=== PATIENT | female | born 1955 | race Caucasian/White ===

== ENCOUNTER 2018-08-05 09:39 | Inpatient (IN) ==
[2018-08-05] MEDS ORDERED: ZOFRAN IV PRN (15:26)
[2018-08-05] MEDS ORDERED: NS 1,000 ML IV SCH (15:30)
[2018-08-05] MEDS: FLAGYL 500 MG/NS 500 MG/100 ML IVPB IV SCH ×2 (16:16→23:39)
[2018-08-05] MEDS ORDERED: CIPRO 400 MG/D5W 400 MG/200 ML IVPB IV SCH (17:00)
[2018-08-05 18:05] LABS: URINE SOURCE CLEAN CATCH
[2018-08-05 18:17] LABS: BILIRUBIN URINE NEGATIVE (NEGATIVE); BLOOD URINE NEGATIVE (NEGATIVE); COLOR YELLOW; GLUCOSE URINE 100 mg/dL (NEGATIVE); KETONE URINE NEGATIVE (NEGATIVE); LEUKOCYTES URINE NEGATIVE (NEGATIVE); NITRITE URINE NEGATIVE (NEGATIVE); PROTEIN URINE TRACE mg/dL (NEGATIVE); SP GRAVITY URINE 1.024; TURBIDITY URINE CLEAR (CLEAR); UROBILINOGEN URINE NORMAL (NORMAL)
[2018-08-05 18:18] LABS: UR EPITHELIAL CELLS <10 /HPF (<10); URINE BACTERIA NEGATIVE /HPF; URINE RBC <10 /HPF (<10); URINE WBC <10 /HPF (<10)
[2018-08-05] MEDS: LASIX PO SCH (18:32)
[2018-08-05] MEDS: ALDACTONE PO SCH (18:32)
[2018-08-05] MEDS ORDERED: BENADRYL PO PRN (18:36)
[2018-08-05 19:20] LABS: BODY FLUID SOURCE PERITONEAL FLUID; WBC BF 433 /cumm
[2018-08-05 19:23] LABS: ALBUMIN BODY FLUID 0.3 g/dL
[2018-08-05 19:26] LABS: MONOS 84 %; POLYS 16 %
[2018-08-05] MEDS: TYLENOL PO PRN (23:39)
--- NOTE | 2018-08-05 23:43 | GENERAL SURGERY CONSULTATION ---
DATE: 08/05/2018 HISTORY OF PRESENT ILLNESS: This is a 63-year-old female who is a patient Dr. Washington. She underwent laparoscopic cholecystectomy with a wedge resection of liver, chronic cholecystitis, and for presumed cirrhosis on 07/26/2018. She had a drain that was left that drained serous ascites and was removed. She developed abdominal discomfort. Dr. Osborne got a CT scan that did not really show anything acute, and she went to [place], where another CT scan was obtained. There is some questionable history of pyelonephritis that was noted on her CT scan, and possible right-sided colitis. But, overall she has had normal bowel function, no fevers, and no jaundice. Pain is across her lower abdomen. She was also felt to be constipated at 1 point. She was transferred here for further management as there surgeons apparently refused to see her. She is recently postop. MEDICAL HISTORY: Nonalcoholic steatohepatitis with cirrhosis, hypertension, diabetes, hyperlipidemia, osteoarthritis, depression, anxiety. SURGICAL HISTORY: Cholecystectomy, liver biopsy, and a left oophorectomy. SOCIAL HISTORY: No alcohol. Smokes half pack a day. Lives with her family. REVIEW OF SYSTEMS: Ten point negative. FAMILY HISTORY: Arthritis, diabetes, hypertension, and CVA. OBJECTIVE: Vital signs: She is afebrile, 97.9, pulse 70, blood pressure 150/70, O2 saturation 100 percent. General: She is alert. HEENT: No scleral icterus. No cervical mass. Cardiovascular: Normal rate. Pulmonary: No increased work of breathing. Abdomen: Soft. There is serous drainage from the lateral port site. Integument: Warm, dry without jaundice. Psychiatric: Appropriate affect. Neurologic: No obvious tremulousness. No focal deficits. Some lower extremity edema noted on peripheral vascular exam. LABS: White count is pending. Urinalysis shows trace protein and glucose. ASSESSMENT AND PLAN: This 63-year-old female with apparent ascites leak, most likely from decompensated cirrhosis after cholecystectomy. I have talked to Dr. Perez as well as Dr. Harvey about this. We will continue medical optimization. Her ascites is drained and we may ultimately place a stitch here to decrease this but we will in the meantime, until her workup is completed, allow this to drain. It is clear, I do not see any purulence, and her exam is benign. There is really no tenderness on exam. We will follow along. cc: Kacey Little MD
[2018-08-06 06:10] LABS: BASO# 0.13 X1000 (0.0-0.2); BASO% 0.8 % (0.0-0.8); EOS# 0.68 X1000 (0.0-0.7); EOS% 4.4 % (0.0-10.0); HEMATOCRIT 41.5 % (37.0-47.0); HEMOGLOBIN 14.3 g/dL (12.0-16.0); IMM GRAN# 0.19 X1000 (0.0-0.04); IMM GRAN% 1.2 % (0.0-0.5); LYMPH# 2.44 X1000 (1.2-3.4); LYMPH% 15.9 % (20.5-51.1); MCH 32.3 PG (27-31); MCHC 34.5 g/dL (33-37); MCV 93.7 FL (81-99); MONO# 1.91 X1000 (0.11-0.59); MONO% 12.4 % (1.7-9.3); MPV 10.5 FL (7.4-10.4); NEUT% 65.3 % (42.2-75.2); PLT 204 X1000 (130-400); RBC 4.43 XMIL (4.2-5.4); RDW 14.4 % (11.5-14.5); WBC 15.35 X1000 (4.8-10.8)
[2018-08-06 06:30] LABS: AGAP 10; ALB/GLOB RATIO 0.7; ALBUMIN 2.6 g/dL (3.5-5.0); ALKALINE PHOSPHATASE 292 U/L (32-104); BUN 14 mg/dL (8-22); CALCIUM 8.3 mg/dL (8.8-10.2); CHLORIDE 101 mmol/L (98-107); COSMO 270; CREATININE 0.7 mg/dL (0.5-0.9); ESTIMATED GFR > 60; GLUCOSE 161 mg/dL (70-104); GOT 80 U/L (10-30); GPT 60 U/L (10-36); POTASSIUM 4.2 mmol/L (3.5-5.1); SODIUM 133 mmol/L (136-145); TCO2 22 mmol/L (25-35); TOTAL BILIRUBIN 0.87 mg/dL (0.20-1.00); TOTAL PROTEIN 6.3 g/dL (6.3-8.3)
[2018-08-06] MEDS: TYLENOL PO PRN ×2 (06:51→16:08)
--- NOTE | 2018-08-06 08:06 | GASTROENTEROLOGY CONSULTATION ---
DATE: 08/05/2018 REASON FOR CONSULTATION: Newly decompensated ALLRED cirrhosis with ascites. HISTORY OF PRESENT ILLNESS: Ms. Althea Chau is a 63-year-old woman with past medical history of hypertension, hyperlipidemia, GERD, insulin-dependent diabetes type 2, anxiety, and ALLRED cirrhosis, who underwent laparoscopic cholecystectomy by Dr. Osborne on 07/26, who presents with persistent drainage of clear yellow fluid from her MAGUE drain site since her operation. The patient reports having underwent cholecystectomy for chronic cholecystitis. Intraoperatively she was found to have a nodular-appearing liver, and underwent wide resection of segment 4 of the liver. A MAGUE drain was placed and the patient was discharged the same day. She was seen in the ER on 07/28 complaining of generalized abdominal pain, and was diagnosed with constipation. She underwent CT of the abdomen and pelvis with IV contrast that showed constipation, cirrhosis and patchy bibasilar atelectasis without significant evidence of ascites. She was noted to have drainage from her MAGUE drain at the time. Since then, she says that she has been emptying her MAGUE drain approximately every 30 minutes. She was seen by her PCP because of her symptoms, as well as right lower quadrant pain. This past Wednesday she was seen by her surgeon, who removed her MAGUE drain. Despite removal of the drain, she continued to have copious amounts of fluid that would drain spontaneously that was worse with standing. She complains of associated nausea, no vomiting, fevers, chills, sludge, bright red blood per rectum, melena. No NSAIDs or blood thinners. She denies having a history of ascites in the past or other complications of cirrhosis. REVIEW OF SYSTEMS: As per HPI, otherwise 12 point review of systems is negative. PAST MEDICAL HISTORY: As per HPI. Other notable history includes osteoarthritis, tobacco abuse. The patient reports having an EGD in 2018 that showed grade 1 varices that were nonbleeding. No history of banding. PAST SURGICAL HISTORY: Cholecystectomy on 07/26, hysterectomy, , carpal tunnel surgery. FAMILY HISTORY: Negative for liver disease. SOCIAL HISTORY: She smokes 1/4 pack of tobacco daily. No alcohol or drug use. HOME MEDICATIONS: Include lisinopril, hydrochlorothiazide combination medication, sertraline, Janumet, Novolin 70/30, clonidine. ALLERGIES: No known drug allergies. PHYSICAL EXAMINATION: Vital Signs: Temperature 97.9 degrees, heart rate 74, respiratory rate 18, blood pressure 134/45, O2 saturation 97% on room air. General: The patient is awake, alert, oriented, in no acute distress. HEENT: Sclerae anicteric. Moist mucous membranes. Extraocular motor intact. Neck: Supple. No JVD or lymphadenopathy. Cardiac: Regular rate and rhythm. No murmurs. Lungs: Clear to auscultation bilaterally. Abdomen: Obese, distended. Bowel sounds are present. Difficult to appreciate significant ascites. There is am ostomy bag overlying the MAGUE drain site at the right lower quadrant that is draining yellow clear fluid. The patient has some mild tenderness to palpation in the right lower quadrant. No rebound or guarding. Extremities: No clubbing, cyanosis, or edema. Neurologic: Cranial nerves II-XII grossly intact. No asterixis. Moving extremities symmetrically. LABS/X-RAYS: The patient was initially hospitalized at outpatient hospital since 08/02, and was treated for suspected pyelonephritis with antibiotics. CT of the abdomen and pelvis done there showed potential colitis in the ascending and sigmoid colon. No evidence of pyelonephritis. Urine culture that showed Klebsiella pneumoniae, UTI. Labs today showed a sodium of 132, potassium 4.2, chloride of 96, bicarbonate 23. BUN of 20, creatinine 0.6, glucose of 223. White count 17.5, hemoglobin of 13.9, platelets of 233,000. Albumin 3.1, total protein 7.5, total bilirubin of 1.0. ALT of 84, AST of 54, alkaline phosphatase of 313. There is no fluid analysis studies in the transfer paperwork. ASSESSMENT AND PLAN: 1. Ms. Althea Chau is a 63-year-old woman with hypertension, hyperlipidemia, insulin- dependent diabetes type 2, who underwent recent laparoscopic cholecystectomy and wedge liver biopsy, who presents with newly decompensated nonalcoholic steatohepatitis cirrhosis with ascites. Her labs from the outside hospital are notable for leukocytosis, urinary tract infection with Klebsiella pneumoniae, and computed tomography of the abdomen and pelvis concerning for possible colitis. She is currently on antibiotics with ceftriaxone and Flagyl. General Surgery was consulted and following; appreciate recommendations for her cirrhosis. She is followed by Dr. Glass from [place]. 2. For ascites, we will apply pressure dressing at the site of the Damon-Rogers drain after removing the colostomy bag and getting ascites fluid studies, including cultures, Clostridium difficile, Gram stain, bilirubin, albumin culture and cell count with this. We will also start her on a diabetic diet, spironolactone 100 mg, furosemide 40 mg. She may need intermittent paracentesis to help reduce ascites and drainage from her Damon-Rogers drain. I will discuss with Surgery for possible closure of her Damon-Rogers drain if necessary pending her clinical course. 3. Leukocytosis secondary to urinary tract infection. Cannot rule out peritonitis. We will follow up fluid analysis and culture. Continue antibiotics. 4. Computed tomography showing colitis. The patient denies any diarrhea. She has had a colonoscopy in the past with a history of colon polyps. She cannot recall when her last colonoscopy was done. There is no evidence of anemia on her labs. 5. Insulin-dependent diabetes. Recommend sliding scale insulin. 6. Hypertension. Holding blood pressure medications. She is currently normotensive at the moment. We will trend her liver function tests and INR daily, as well as her chemistries and complete blood count. Thank you for this consult. We will follow with you. Please call with any questions or concerns. [facility]ITAL[facility]
[2018-08-06] MEDS ORDERED: ROCEPHIN 1 GM in NS 50 ML IV SCH (09:00)
[2018-08-06] MEDS: ALDACTONE PO SCH (09:22)
[2018-08-06] MEDS: FLAGYL 500 MG/NS 500 MG/100 ML IVPB IV SCH ×2 (09:22→16:08)
[2018-08-06] MEDS: LASIX PO SCH (09:23)
--- NOTE | 2018-08-06 11:18 | PROGRESS NOTE ---
DATE: 08/06/2018 SUBJECTIVE: She is does state she feels better. The lower abdominal pain has diminished quite a bit. She remains afebrile. She is breathing comfortably, tolerating liquids. OBJECTIVE: Vital signs: Temperature 98.2 degrees, pulse 80, respirations 16, blood pressure 141/81. HEENT: Pupils are equal. Lungs: Clear anterolateral. Lymph nodes: No cervical or supraclavicular or femoral adenopathy. Abdomen: Lower abdomen is much less tender. Rest of the abdomen nondistended. Really diminished tenderness. ASSESSMENT AND PLAN: 1. Recently received laparoscopic cholecystectomy and had a wedge liver biopsy. She has newly decompensated nonalcoholic steatohepatitis cirrhosis with ascites. She has been treated for a urinary tract infection with Klebsiella pneumoniae. CT of the abdomen and pelvis, possible colitis, on antibiotics. We are using ceftriaxone and Flagyl. Note we tried some Cipro IV and she had developed a rash and itching. So, doing much better. She feels better. She is followed by Dr. Glass from [place] for her nonalcoholic liver disease. 2. Ascites. We are going to apply some pressure at the site of the Damon-Rogers drain and we will get cultures from the ascitic fluid. Clinically, she is much better. She may need intermittent paracentesis to help ascites and drainage from her Damon-Rogers drain. 3. Leukocytosis which is presumably is secondary from urinary tract infection. Cannot rule out peritonitis at this time. 4. CT shows colitis. Had a colonoscopy in the past with history of colon polyps. Does not recall when her last colonoscopy was done. 5. Insulin-dependent diabetes. 6. Hypertension. REVIEW OF CURRENT ORDERS: I do not see any change at this time. She does feel better. She is on a diabetic diet. cc: Jeremy Horn MD
--- NOTE | 2018-08-06 17:58 | Diag Imaging Result Doc PS360 ---
EXAM: US ABDOMEN-COMPLETE HISTORY: evaluate ascites TECHNIQUE: Abdominal ultrasound COMPARISON: CT from 07/28/2018 FINDINGS: the pancreas, aorta, and inferior vena cava are all obscured. There is fatty infiltration of the liver. 2.7 cm septated cyst. Trace fluid about the liver. The gallbladder has been removed. The common bile duct measures 3 mm. There is a 1.9 cm right upper pole renal cyst. The kidneys otherwise normal. No hydronephrosis. No splenomegaly. No fluid about the spleen. IMPRESSION: Minimal fluid about the liver. Electronically signed by Donny Holguin 08/06/2018 5:56 PM
[2018-08-06] MEDS ORDERED: ALBUMIN 25% IV ONE (18:21)
--- NOTE | 2018-08-06 18:28 | PROVIDER PROGRESS NOTE ---
Progress Note SUBJECTIVE: No acute overnight events. No N/V/F, SOB, CP. She is tolerating diet. She reports continued leakage from MAGUE drain site despite pressure dressing. No significant abdominal pain. No diarrhea or rectal bleeding. OBJECTIVE: Last Vital Signs Temp 98.4 F 08/06/18 15:58 Pulse 79 08/06/18 15:58 Resp 16 08/06/18 15:58 BP 133/47 08/06/18 15:58 Pulse Ox 99 08/06/18 15:58 Height 5 ft 6 in Weight 206 lb GEN: awake, alert, NAD HEENT: anicteric, MMM, EOMI NECK: supple, no jvd CV: RRR, no murmurs PULM: CTAB, no wheezing ABD: obese saturated pressure dressing in RLQ, BS present. Difficult to appreciate ascites, NT EXT: no cce NEURO: no asterixis LABS: 08/05/18 08/05/18 08/05/18 17:57 18:31 18:31 WBC Hgb Plt Count Sodium Potassium Chloride Carbon Dioxide BUN Creatinine Glucose Total Bilirubin AST ALT Alkaline Phosphatase Total Protein Albumin Urine Leukocytes NEGATIVE Urine WBC (Auto) <10 Fluid WBC 433 Fluid Polynuclear WBCs 16 Fluid Mononuclear WBCs 84 Fluid Albumin 0.3 08/06/18 08/06/18 05:37 05:37 WBC 15.35 H Hgb 14.3 Plt Count 204 Sodium 133 L Potassium 4.2 Chloride 101 Carbon Dioxide 22 L BUN 14 Creatinine 0.7 Glucose 161 H Total Bilirubin 0.87 AST 80 H ALT 60 H Alkaline Phosphatase 292 H Total Protein 6.3 Albumin 2.6 L Urine Leukocytes Urine WBC (Auto) Fluid WBC Fluid Polynuclear WBCs Fluid Mononuclear WBCs Fluid Albumin EXAM: US ABDOMEN-COMPLETE HISTORY: evaluate ascites TECHNIQUE: Abdominal ultrasound COMPARISON: CT from 07/28/2018 FINDINGS: the pancreas, aorta, and inferior vena cava are all obscured. There is fatty infiltration of the liver. 2.7 cm septated cyst. Trace fluid about the liver. The gallbladder has been removed. The common bile duct measures 3 mm. There is a 1.9 cm right upper pole renal cyst. The kidneys otherwise normal. No hydronephrosis. No splenomegaly. No fluid about the spleen. IMPRESSION: Minimal fluid about the liver. A/P: Ms. Althea Chau is a 63-year-old woman with hypertension, hyperlipidemia, IDDM2 who underwent recent laparoscopic cholecystectomy and wedge liver resection who presents with newly decompensated nonalcoholic steatohepatitis cirrhosis with ascites. She initially presented to outside hospital where she was treated for K pneumo UTI and "pyleonephritis". CT A/P there did not confirm pyelo, but was notable for "colitis" in the ascending and descending colon. Patient denies diarrhea or rectal bleeding. US yesterday shows minimal fluid about the liver. Fluid analysis confirms high SAAG ascites consistent with portal hypertension without evidence of SBP; however, patient has been on antibiotics for several days prior to arrival; cannot exclude peritonitis. She is currently on CTX and flagyl. Repeat UA was negative for infection or blood. # Decompensated ALLRED cirrhosis: low MELD - Cirrhosis: 2/2 to ALLRED followed by Dr. Maykel Pérez MD at [facility] in [place], [place] - Ascites: started on lasix 40mg and aldactone 100mg daily; low NA diet, will given albumin 50gm IV once today; no significant fluid on US to do paracentesis - PSE: none prior; no need for lactulose - HCC: no hepatoma on U/S, repeat q6mo - EV: reports history of grade 1 varices on 2018; no history of bleeding; patient will need repeat EGD as outpatient given new decompensation - OLT: low MED - IMM: will check HAV/HBV immunity; vaccinate if negative # S/p lap thomas: recommend attempt to suture of MAGUE wound to decrease drainage leading to electrolyte imbalance and volume depletion # K. pneumo UTI: repeat UA negative: stopped CTX # Leukocytosis: persistent: afebrile; colitis on imaging; cannot rule out peritonitis: continue flagyl IV TID; start cipro 400mg IV BID for GNR coverage; trend CBC # IDDM2: mgmt per primary # History of colonic polyps: outpatient colonoscopy recommended Will follow with you. Please call with questions
[2018-08-06] MEDS ORDERED: CIPRO 400 MG/D5W 400 MG/200 ML IVPB IV SCH (18:30)
--- NOTE | 2018-08-06 18:35 | GENERAL SURGERY PROGRESS NOTE ---
DATE: 08/06/2018 SUBJECTIVE: She states she feels okay. Denies any abdominal pain. No fevers. No tachycardia. No nausea or vomiting. Continues to have drainage of ascites from her lateral port site. OBJECTIVE: General: She is alert. ABDOMEN: Soft. LABS: Her white count is 15, hematocrit is 41. Creatinine is 0.7. Bilirubin is normal. AST, ALT, and alkaline phosphatase are mildly elevated. ASSESSMENT AND PLAN: This is a 63-year-old female with cirrhosis, status post cholecystectomy, now decompensated with ascites that is leaking out through a lateral port site. We will monitor this. She has been treated for this medically. Dr. Harvey and Dr. Horn are following and managing, but no signs of surgical complication. cc: Kacey Little MD
[2018-08-06] MEDS: ZOSYN 3.375 GM in NS 50 ML IV SCH (22:27)
[2018-08-07] MEDS: ZOSYN 3.375 GM in NS 50 ML IV SCH ×4 (03:09→22:29)
[2018-08-07] MEDS: TYLENOL PO PRN (03:32)
[2018-08-07] MEDS: ALDACTONE PO SCH (09:17)
[2018-08-07] MEDS: LASIX PO SCH (09:17)
[2018-08-07 09:57] LABS: INR 1.25; PROTIME 16.7 Seconds (11.0-16.0)
[2018-08-07 10:05] LABS: AGAP 9; ALB/GLOB RATIO 1.2; ALKALINE PHOSPHATASE 225 U/L (32-104); BUN 10 mg/dL (8-22); CALCIUM 8.4 mg/dL (8.8-10.2); CHLORIDE 102 mmol/L (98-107); COSMO 277; CREATININE 0.7 mg/dL (0.5-0.9); ESTIMATED GFR > 60; GLUCOSE 236 mg/dL (70-104); GOT 60 U/L (10-30); GPT 42 U/L (10-36); POTASSIUM 3.9 mmol/L (3.5-5.1); SODIUM 135 mmol/L (136-145); TCO2 24 mmol/L (25-35); TOTAL BILIRUBIN 1.24 mg/dL (0.20-1.00); TOTAL PROTEIN 5.6 g/dL (6.3-8.3)
[2018-08-07 11:23] LABS: BASO# 0.07 X1000 (0.0-0.2); BASO% 0.6 % (0.0-0.8); EOS# 0.42 X1000 (0.0-0.7); EOS% 3.8 % (0.0-10.0); HEMATOCRIT 35.4 % (37.0-47.0); IMM GRAN# 0.05 X1000 (0.0-0.04); IMM GRAN% 0.5 % (0.0-0.5); LYMPH# 1.45 X1000 (1.2-3.4); LYMPH% 13.1 % (20.5-51.1); MCH 32.3 PG (27-31); MCHC 33.9 g/dL (33-37); MCV 95.2 FL (81-99); MONO# 1.52 X1000 (0.11-0.59); MONO% 13.8 % (1.7-9.3); MPV 10.5 FL (7.4-10.4); NEUT# 7.52 X1000 (1.4-6.5); NEUT% 68.2 % (42.2-75.2); PLT 156 X1000 (130-400); RBC 3.72 XMIL (4.2-5.4); RDW 14.2 % (11.5-14.5); WBC 11.03 X1000 (4.8-10.8)
--- NOTE | 2018-08-07 13:44 | PROGRESS NOTE ---
DATE: 08/07/2018 SUBJECTIVE: Ms. Chau feels much better. Her tummy feels better. Less pain, discomfort. She is still having leaking from her right side of her abdomen, peritoneal fluid. OBJECTIVE: Vital Signs: Temp 97.7 degrees, remains afebrile, pulse 84, respirations 24, blood pressure 126/44. HEENT: Pupils are equal and round. Lungs: Clear in all lung mae. Cardiovascular: Regular rhythm and rate without murmur or S3. Abdomen: Soft. Skin: Warm and dry. LABORATORY DATA: Lab from this morning: White count 11,030, hematocrit is 35, platelet count is 156,000. Sodium 135, potassium 3.9, chloride 102, BUN 10, creatinine 0.7. AST has come down to 60, ALT 42, bilirubin was 1.24. ASSESSMENT AND PLAN: 1. The patient recently had a laparoscopic cholecystectomy, wedge liver resection, presented with newly-decompensated nonalcoholic steatohepatitis, cirrhosis, and ascites. Initially presented outside the hospital, where she was treated for pyelonephritis, but CT scan suggested colitis, ascending and descending colon. The patient had diarrhea and rectal bleeding. Minimal fluid about the liver. Fluid analysis showed high serum-ascites albumin gradient ascites consistent with portal hypertension, without evidence of subacute bacterial peritonitis. She has been on antibiotics for several days. Cannot exclude peritonitis. Currently, she is on intravenous antibiotics, Flagyl and ceftriaxone. 2. Decompensated nonalcoholic steatohepatitis cirrhosis. She has a low MELD score. Echocardiogram, I think reports grade 1 varices. No history of bleeding. Will need a repeat esophagogastroduodenoscopy as an outpatient. She is improved. She is status post laparoscopic cholecystectomy, and Dr. Harvey has recommended that we try and attempt to suture the Damon-Rogers wound, decrease drainage and leakage. Continue present antibiotics. REVIEW OF ORDERS: Patient getting Lasix 40 mg p.o. daily, spironolactone 100 mg daily. He is on Zosyn 3.375 grams IV every 6 hours, and Dr. Harvey gave her some albumin yesterday. cc: Jeremy Horn MD
--- NOTE | 2018-08-07 13:52 | PROVIDER PROGRESS NOTE ---
Progress Note SUBJECTIVE: No acute overnight events. No N/V/F, CP, SOB. She is tolerating diet. She reports mild RLQ pain that is improving. +BMs. OBJECTIVE: Last Vital Signs Temp 97.7 F 08/07/18 12:35 Pulse 84 08/07/18 12:35 Resp 24 08/07/18 12:35 BP 126/44 08/07/18 12:35 Pulse Ox 99 08/07/18 12:35 Height 5 ft 6 in Weight 206 lb GEN: awake, alert, NAD HEENT: anicteric, MMM, EOMI NECK: supple, no jvd CV: RRR, no murmurs PULM: CTAB, no wheezing ABD: obese, ostomy bag with clear liquid ascites fluid; minimal RLQ TTP, BS present. EXT: no cce NEURO: no asterixis LABS: 08/07/18 08/07/18 08/07/18 09:22 09:22 09:22 WBC 11.03 H Hgb 12.0 D Plt Count 156 INR 1.25 Sodium 135 L Potassium 3.9 Chloride 102 Carbon Dioxide 24 L BUN 10 Creatinine 0.7 Total Bilirubin 1.24 H AST 60 H ALT 42 H Alkaline Phosphatase 225 H Total Protein 5.6 L Albumin 3.0 L A/P: Ms. Althea Chau is a 63-year-old woman with hypertension, hyperlipidemia, IDDM2 who underwent recent laparoscopic cholecystectomy and wedge liver resection who presents with newly decompensated nonalcoholic steatohepatitis cirrhosis with ascites. She initially presented to outside hospital where she was treated for K pneumo UTI and "pyleonephritis". CT A/P there did not confirm pyelo, but was n otable for "colitis" in the ascending and descending colon. Patient denies diarrhea or rectal bleeding. US showed minimal fluid about the liver. Fluid analysis confirms high SAAG ascites consistent with portal hypertension. 1/2 cultures from peritoneal fluid growing GPCs. # Decompensated ALLRED cirrhosis: low MELD - Cirrhosis: 2/2 to ALLRED followed by Dr. Maykel Pérez MD at [facility] in [place], [place] - Ascites: continue lasix 40mg and aldactone 100mg daily; given 50gm albumin yesterday; low NA diet; albumin 3.0 today; will given 50gm albumin again today - PSE: none prior; no need for lactulose - HCC: no hepatoma on U/S, repeat q6mo - EV: reports history of grade 1 varices on 2018; no history of bleeding; patient will need repeat EGD as outpatient given new decompensation - OLT: low MELD - IMM: will check HAV/HBV immunity; vaccinate if negative # ?Peritonitis: 1/2 cultures from peritoneal fluid growing GPCs - continue zosyn, await speciation; leukocytosis improving # S/p lap thomas: recommend attempt to suture of MAGUE wound to decrease drainage leading to electrolyte imbalance and volume depletion # K. pneumo UTI: s/p treatment; repeat UA negative # IDDM2: mgmt per primary # History of colonic polyps: outpatient colonoscopy recommended Will follow with you. Please call with questions
[2018-08-07] MEDS ORDERED: ALBUMIN 25% IV ONE (13:53)
[2018-08-08] MEDS: TYLENOL PO PRN (02:57)
[2018-08-08] MEDS: ZOSYN 3.375 GM in NS 50 ML IV SCH ×4 (03:32→20:41)
--- NOTE | 2018-08-08 07:03 | GENERAL SURGERY PROGRESS NOTE ---
DATE: 08/08/2018 The patient seems to be doing about the same. Reviewed notes from admission. I did discuss our case with the hospitalist over at [facility]. GI is on board and following her. She does have continued output from her most lateral trocar site, which looks like there is some bacteria positive in it. Nursing staff does report that the overall output has decreased but we still may need to place a stitch in the area, which I am not opposed to, but would like to see what the trend of her output is. Otherwise, continue supportive care. No surgical issues. cc: Fritz Osborne MD
[2018-08-08] MEDS: ALDACTONE PO SCH (08:58)
[2018-08-08] MEDS: LASIX PO SCH (08:58)
--- NOTE | 2018-08-08 10:27 | GASTROENTEROLOGY PROGRESS NOTE ---
DATE: 08/08/2018 SUBJECTIVE: The patient is currently lying in bed. She is feeling better. She is moving her bowels. The last bowel movement was yesterday. She denies any fevers, rigors, or chills. PHYSICAL EXAMINATION: Vital Signs: Temperature 98.4 degrees, pulse rate of 67, respiratory rate of 16, blood pressure 120/46, saturating 98% on room air. Body weight of 206 pounds, BMI of 33.2 kg/m2. General Appearance: Moderately built, moderately nourished, lying in bed in no acute distress. HEENT: Mild pallor. Mild icterus. Neck: Supple. Abdomen: Soft. She has an ostomy bag at the site of prior surgery and a MAGUE drain. She had a cholecystectomy done. At that time, a MAGUE drain was placed and after that, she continued to drain ascitic fluid through there. No guarding or rebound. Extremities: No cyanosis, clubbing. Neurologic: Alert, awake, oriented x3. LABS: Hemoglobin and hematocrit are 12 and 35.4, white count 11.03, platelet count 136,000. INR 1.25, PT of 16.7. Sodium 130, potassium 3.9, chloride 102, bicarb 24, anion gap 9, BUN of 10, creatinine 0.7, glucose of 236, calcium is 8.4. Total bilirubin is 1.24, AST 60, ALT 42, alkaline phosphatase 244, total protein 5.2, albumin of 3. Peritoneal fluid is showing Staphylococcus hemolyticus, Enterococcus group D, and they are resistant to clindamycin, erythromycin, penicillin G, and tetracycline. IMPRESSION AND PLAN: 1. Decompensated nonalcoholic steatohepatitis cirrhosis. She continues to follow with Dr. Maykel Pérez MD, at [facility] in [place], [place]. Continue to follow liver enzymes. 2. Ascites. She will continue on Lasix 40 mg daily and Aldactone 100 mg daily. She will continue on a low-sodium diet. She has received intravenous albumin. 3. Hepatic encephalopathy. We will watch for that. 4. The patient had no evidence of any hepatoma on ultrasound. 5. Peritonitis. She will continue on Zosyn. We will call an infectious disease consult as she has multidrug resistant bacteria growing in the peritoneal fluid. I placed a consult for Dr. Froy Gaming. 6. Status post laparoscopic cholecystectomy. This is being followed by Dr. Osborne. 7. Klebsiella pneumoniae urinary tract infection. She is on antibiotics. 8. Type 2 diabetes. Management per primary care doctor. 9. History of colon polyps. Outpatient colonoscopy recommended. 10. The patient has a history of recent laparoscopic cholecystectomy and wedge liver resection. She presented to the hospital with decompensated nonalcoholic steatohepatitis, cirrhosis, ascites draining through the Damon-Rogers site. 11. Gastrointestinal prophylaxis. At this moment, we will just watch for now. 12. We will follow along. The above plans were discussed with the patient and all questions were answered. Please call with any further questions. cc: MD Jeremy Charles MD Matthew L. Figh, MD MTDD
--- NOTE | 2018-08-08 13:32 | PROGRESS NOTE ---
DATE: 08/08/2018 SUBJECTIVE: Ms. Chau says she feels better. They have a bag over the right former Damon- Rogers drain site. It still is draining fluid which appears clear. OBJECTIVE: Vital Signs: She remains afebrile, temperature 98.2 degrees, pulse 66, respirations 16, blood pressure 126/41. Pupils are equal and round. Lungs: Clear in all lung mae. Cardiovascular: Regular rhythm and rate without murmur or S3. Abdomen: Soft. Skin: Warm and dry. LABORATORY STUDIES: Urine output is over almost 10 L so good urine output. Her peritoneal fluid grew out Staphylococcus haemolyticus and Enterococcus faecalis group D. Dr. Gaming is following and so the plan is to continue present antibiotics. ASSESSMENT AND PLAN: 1. She has decompensated nonalcoholic steatohepatitis cirrhosis. Continues to follow Dr. Pérez at [facility] in [place], [place]. 2. Ascites. Continue Lasix 40 mg a day, Aldactone 100 mg a day. Continue low-sodium diet. She had some intravenous albumin given. 3. Hepatic encephalopathy. No signs of this at this point. 4. No evidence of any hepatoma on ultrasound. 5. Peritonitis. Continue Zosyn. Dr. Gaming is following. 6. Status post laparoscopic cholecystectomy a couple weeks ago. 7. She was treated for Klebsiella pneumoniae urinary tract infection right before she was admitted. 8. Diabetes mellitus type 2. Continue to follow sugars. Appear well controlled. 9. History of colon polyps palpation. Colonoscopy recommended. 10. History of recent laparoscopic cholecystectomy, wedge liver resection at that time. Presented to the hospital with decompensated nonalcoholic steatohepatitis cirrhosis and ascites draining to the Damon-Rogers drain site. 11. Continue GI prophylaxis. CURRENT ORDERS: Lasix 40 mg a day, spironolactone 100 mg a day, Zosyn 3.375 g IV q.6 h. cc: Jeremy Horn MD
--- NOTE | 2018-08-08 13:53 | INFECTIOUS DISEASE CONSULT REP ---
DATE: 08/08/2018 CONCLUSION: Patient has peritonitis due to Staph haemolyticus and Enterococcus faecalis. RECOMMENDATIONS: I have started the patient on vancomycin. I have discontinued Zosyn. After a few days of treatment with vancomycin, if the drainage decreases, I think she could possibly be changed to oral antibiotics. I would probably treat her with a combination of Levaquin and amoxicillin. DISCUSSION: The patient approximately 3 weeks ago had a cholecystectomy and wedge liver resection. Approximately 2 days after the surgery she began experiencing right- sided abdominal pain associated with nausea. The patient had continuous drainage after the procedure and the drain eventually was taken out and an ostomy bag was placed over where the drainage catheter was. The fluid is a serous fluid with a slight yellowish tinge. It looks clear. Her CBC shows a white count of 11,030, hemoglobin is 12, platelet count is 156,000. Creatinine is 0.7. GFR is greater than 60. The peritoneal fluid had a white blood cell count of 433, of which 84% were mononuclear cells. As mentioned above, the ascites grew Staph haemolyticus and Enterococcus faecalis. The patient's liver function studies show an alkaline phosphatase of 225. Urinalysis was negative for white cells and bacteria. The patient continues to have right- sided abdominal pain and nausea. REVIEW OF SYSTEMS: Eyes and ears: The patient hears and sees well. Neck: No stiffness and no pain in the neck when she moves her neck or her head. Respiratory: No dyspnea or cough. Cardiac: No chest pain or palpitations. : No dysuria or flank pain. GI: Patient continues to be still somewhat nauseated and the drainage continues. Genitourinary: No dysuria or flank pain. Neurologic: No seizures. No loss of motor or sensory function. Bones, joints, muscles: No joint swelling or muscle aching. TRANSIT PLANNER HISTORY: She is a 2, para 2, AB 0. She delivered both children by . She has had a hysterectomy and unilateral salpingo-oophorectomy. PREVIOUS HOSPITALIZATIONS AND OPERATIONS: She has had 2 C-sections, a hysterectomy, unilateral salpingo-oophorectomy, a left total ankle replacement surgery and carpal tunnel surgery. MEDICAL DISEASES: Positive for diabetes mellitus, obesity, hypertension and hyperlipidemia. The patient also has cirrhosis of the liver. INFECTIOUS DISEASE HISTORY: Positive for UTI. FAMILY HISTORY: Positive for diabetes mellitus, hypertension, myocardial infarction, stroke and cancer. SOCIAL HISTORY[place] . She has a cat as a pet. She smokes cigarettes and stopped 3 weeks ago. She does not drink alcoholic beverages or abuse drugs. The patient is retired from working. ALLERGIES: Patient is allergic to Cipro. HOME MEDICATIONS: Include Norvasc, Catapres, Bydureon, insulin, lisinopril, Pravachol, Zoloft and metformin/Janumet combined tablet. PHYSICAL EXAMINATION: Vital Signs: Temperature is 98.2 degrees, pulse 66, respirations 16, blood pressure 126/41. The patient is 5 feet 6 inches tall, weighs 206 pounds. General: This is an obese, middle-aged female. She appears to be in no acute distress today. Head/eyes/ears/nose/throat: She can hear my spoken words and see near objects. There is no drainage from the nose or ears. There were no white patches on her tongue. Neck: No meningismus. Lungs: Clear to auscultation. Cardiovascular: Heart rate is regular. Abdomen: Soft and nontender. The patient does have an ostomy bag where the drainage tube was. It is serous clear fluid with a yellowish tinge. The patient's incisions are all intact. Neurologic: The patient is alert. She ambulates without difficulty. Her sensation is intact to touch. Her memory as regarding her medical history is intact. Thank you for the consult. cc: Froy Gaming MD MTDD
[2018-08-09] MEDS: TYLENOL PO PRN ×2 (00:36→18:00)
[2018-08-09] MEDS: ZOSYN 3.375 GM in NS 50 ML IV SCH (05:18)
[2018-08-09] MEDS ORDERED: ZOSYN ONE (05:36)
--- NOTE | 2018-08-09 07:28 | GENERAL SURGERY PROGRESS NOTE ---
DATE: 08/09/2018 The patient is growing group B enterococcus and Staphylococcus hemolyticus from peritoneal fluid. Infectious Disease has been consulted. Overall output has been decreasing and so maybe we will hold off on a stitch and allow it time to drain. Maybe once we get her fluid restrictions and salt restrictions and medications aligned, should be able to have this stop. We will continue to follow. cc: Fritz Osborne MD
[2018-08-09] MEDS ORDERED: VANCOMYCIN IV PER PHARMACY MISC SCH (07:45)
--- NOTE | 2018-08-09 08:19 | INFECTIOUS DISEASE PROGRESS NO ---
DATE: 08/09/2018 PRESENT ILLNESS: The patient has Staphylococcus hemolyticus and Enterococcus faecalis peritonitis. The patient could have developed peritonitis following her cholecystectomy. The patient does have cirrhosis of the liver and possibly the peritonitis is due to spontaneous bacterial peritonitis. MEDICATIONS: I have discontinued Zosyn and started the patient on vancomycin. PHYSICAL EXAMINATION: Vital Signs: Temperature is 98 degrees, pulse 58, respirations 18, blood pressure 120/43. General: This is an ill-appearing, middle-aged female. She is in no acute distress. Head, Eyes, Ears, Nose, and Throat: She can hear my spoken words and see near objects. She does not have any white patches on her tongue. Neck: She does not have any neck pain when she moves her head or neck. Lungs: Clear to auscultation. Cardiovascular: Regular heart rate. Abdomen: Soft and not tender. The patient's incisions are intact. There is an ostomy bag where there is drainage coming out. It is serous drainage and it seems to be a little bit less than it was yesterday. Neurologic: The patient is alert. She is able to ambulate. There is no tremor. LAB AND X-RAY: There is no new lab or x-ray for today. ASSESSMENT AND PLAN: The patient has peritonitis. Plan is to continue vancomycin. I think the patient could be discharged either tomorrow or the next day and if she is still doing well, I probably will switch her from vancomycin intravenous to amoxicillin and Levaquin by mouth, and then follow the patient up in my office in 2 weeks. COMORBIDITIES: The patient has diabetes and she also has cirrhosis of the liver. cc: Froy Gaming MD
[2018-08-09] MEDS ORDERED: VANCOMYCIN 2,300 MG in NS 500 ML IV ONE (09:00)
[2018-08-09] MEDS: LASIX PO SCH (09:08)
[2018-08-09] MEDS: ALDACTONE PO SCH (09:09)
[2018-08-09] MEDS ORDERED: BLISTEX MEDICATED BERRY LIP BALM TOP PRN (10:02)
--- NOTE | 2018-08-09 16:04 | PROGRESS NOTE ---
DATE: 08/09/2018 SUBJECTIVE: The patient is resting comfortably in bed. She is still complaining of some abdominal discomfort, but no sign of obstruction. She seems to be stable. OBJECTIVE: Vital Signs: Temperature 98.1 degrees, pulse 66, respiratory rate 18, blood pressure 132/59, oxygen saturation 99 on room air. HEENT: Head normocephalic, no trauma. PERRLA. Neck: Supple. No JVD. No masses. Central trachea. Chest: Clear to auscultation. No wheezing. No rales. Abdomen: Soft, her ostomy bag with clear liquid ascites fluid. Positive bowel sounds. Extremities: No edema, no clubbing, no cyanosis. Neurological examination: The patient is alert and oriented x3. No focal deficits. LABORATORY: No lab work done today. ASSESSMENT AND PLAN: 1. Staphylococcus hemolyticus and Enterococcus faecalis group B peritonitis, continue with antibiotics. Infectious Disease Department following this patient closely. Likely this patient can be discharged in the next 24 to 48 hours. 2. Decompensated nonalcoholic steatohepatitis cirrhosis. She has been followed by Dr. Glass at [facility] in [place]. She will probably need to continue with him as an outpatient. 3. Ascites. Continue with Lasix and Aldactone. This has been recommended by Gastroenterology Department. 4. Hepatic encephalopathy, resolved. 5. Status post laparoscopic cholecystectomy a couple weeks ago. Aware. 6. Type 2 diabetes. Continue with the same management. I will add pattern of blood sugar and sliding scale insulin. 7. History of colon polyps. She will need to follow up with her sugar grinder. cc: Jefe Grayson MD
[2018-08-09] MEDS: HUMULIN R SUBQ SCH ×2 (17:55→21:57)
--- NOTE | 2018-08-09 23:35 | PROVIDER PROGRESS NOTE ---
Progress Note SUBJECTIVE: No acute overnight events. Patient tolerating diet. Drainage from MAGUE site resolved. Good UOP OBJECTIVE: Last Vital Signs Temp 98.3 F 08/09/18 23:34 Pulse 66 08/09/18 23:34 Resp 15 08/09/18 23:34 BP 116/44 08/09/18 23:34 Pulse Ox 96 08/09/18 23:34 Height 5 ft 6 in Weight 206 lb GEN: awake, alert, NAD HEENT: anicteric, MMM, EOMI NECK: supple, no jvd CV: RRR, no murmurs PULM: CTAB, no wheezing ABD: obese, ostomy bag with clear liquid ascites fluid; minimal RLQ TTP, BS present. EXT: no cce NEURO: no asterixis LABS: Peritoneal fluid Staphylococcus hemolyticus and Enterococcus faecalis A/P: Ms. Althea Chau is a 63-year-old woman with hypertension, hyperlipidemia, IDDM2 who underwent recent laparoscopic cholecystectomy and wedge liver resection who presents with newly decompensated nonalcoholic steatohepatitis cirrhosis with ascites. She initially presented to outside hospital where she was treated for K pneumo UTI and "pyleonephritis". CT A/P there did not confirm pyelo, but was notable for "colitis" in the ascending and descending colon. Patient denies diarrhea or rectal bleeding. US showed minimal fluid about the liver. Fluid analysis confirms high SAAG ascites consistent with portal hypertension. Staphylococcus hemolyticus and Enterococcus faecalis peritonitis from either s econdary peritoneal vs spontaneous peritonitis. # Decompensated ALRLED cirrhosis: low MELD - Cirrhosis: 2/2 to ALLRED followed by Dr. Maykel Pérez MD at [facility] in [place], [place] - Ascites: continue lasix 40mg and aldactone 100mg daily; low NA diet - PSE: none prior; no need for lactulose - HCC: no hepatoma on U/S, repeat q6mo - EV: reports history of grade 1 varices on 2018; no history of bleeding; patient will need repeat EGD as outpatient given new decompensation - OLT: low MELD - IMM: non-immune to HAV/HBV; recommend vaccination # Peritonitis: on antibiotics per ID # S/p lap thomas: MAGUE drainage resolved # K. pneumo UTI: s/p treatment; repeat UA negative # IDDM2: mgmt per primary # History of colonic polyps: outpatient colonoscopy recommended Will sign off. Please have patient follow-up with Dr. Harvey in 2 weeks upon discharge.
[2018-08-10] MEDS: TYLENOL PO PRN (00:24)
[2018-08-10] MEDS: HUMULIN R SUBQ SCH ×2 (06:30→11:13)
--- NOTE | 2018-08-10 07:21 | GENERAL SURGERY PROGRESS NOTE ---
DATE: 08/10/2018 Patient seems to have less drainage coming out of her Damon-Rogers drain site. Overall, she seems to be doing better. She seems to be feeling better. From a surgical point of view, she is likely safe to be discharged but will defer to Infectious Disease and GI as far as optimization prior to discharge. cc: Fritz Osborne MD
[2018-08-10] MEDS ORDERED: VANCOMYCIN 1,850 MG in NS 500 ML IV SCH (09:00)
--- NOTE | 2018-08-10 09:08 | PROGRESS NOTE ---
DATE: 08/10/2018 SUBJECTIVE: The patient is resting comfortably in bed. She feels stronger. She seems to be more stable. I will discuss the case with a Infectious Disease Department to see if we can discharge this patient home, pending laboratory at this moment. OBJECTIVE: Vital Signs: Temperature 97.9 degrees, pulse 63, respiratory rate 16, blood pressure 122/52, oxygen saturation 100% on room air. HEENT: Head normocephalic no trauma. PERRLA. Neck: Supple. No JVD. No masses. Central trachea. Chest: Clear to auscultation. No wheezing. No rales. Abdomen: Soft. Her ostomy bag is clear with clear liquid ascites fluid, positive bowel sounds. Extremities: No edema, no clubbing, no cyanosis. Neurological: The patient is alert. She is oriented x3. No focal deficits. LABORATORY: Pending lab work today. Blood sugar 155. ASSESSMENT AND PLAN: 1. Staphylococcus haemolyticus and Enterococcus faecalis group B peritonitis, continue with antibiotics. Infectious Disease Department following this patient closely. Probably we can discharge this patient today pending lab work though. 2. Decompensated known alcoholic stat steatohepatitis cirrhosis. She has been followed by Dr. Pérez at [facility] in [place], she probably needs to continue with him as an outpatient. 3. Ascites, continue with Lasix and Aldactone. This has been recommended by gastroenterology department. 4. Hepatic encephalopathy, resolved. 5. Status post laparoscopic cholecystectomy a couple weeks ago, aware. 6. Type 2 diabetes continue with same management, pattern of blood sugar and sliding scale insulin. 7. History of colon polyps. She will need to follow up with her lease buyer. cc: Jefe Grayson MD
[2018-08-10] MEDS: LASIX PO SCH (09:18)
[2018-08-10] MEDS: ALDACTONE PO SCH (09:18)
[2018-08-10 09:29] LABS: BASO# 0.15 X1000 (0.0-0.2); BASO% 1.7 % (0.0-0.8); EOS# 0.52 X1000 (0.0-0.7); EOS% 5.9 % (0.0-10.0); HEMATOCRIT 38.7 % (37.0-47.0); HEMOGLOBIN 13.2 g/dL (12.0-16.0); LYMPH# 1.68 X1000 (1.2-3.4); MCH 32.7 PG (27-31); MCHC 34.1 g/dL (33-37); MCV 95.8 FL (81-99); MONO# 1.42 X1000 (0.11-0.59); MPV 11.2 FL (7.4-10.4); NEUT# 5.08 X1000 (1.4-6.5); NEUT% 57.4 % (42.2-75.2); PLT 87 X1000 (130-400); RBC 4.04 XMIL (4.2-5.4); RDW 14.8 % (11.5-14.5); WBC 8.85 X1000 (4.8-10.8)
[2018-08-10 09:42] LABS: AGAP 8; BUN 9 mg/dL (8-22); CALCIUM 8.5 mg/dL (8.8-10.2); CHLORIDE 104 mmol/L (98-107); COSMO 278; CREATININE 0.5 mg/dL (0.5-0.9); ESTIMATED GFR > 60; GLUCOSE 160 mg/dL (70-104); POTASSIUM 3.6 mmol/L (3.5-5.1); SODIUM 138 mmol/L (136-145); TCO2 26 mmol/L (25-35)
--- NOTE | 2018-08-10 10:52 | INFECTIOUS DISEASE PROGRESS NO ---
DATE: 08/10/2018 PRESENT ILLNESS: The patient has a Staphylococcus hemolyticus and Enterococcus faecalis peritonitis. This could have developed peritonitis following a cholecystectomy. On the other hand the patient does have cirrhosis of the liver and possibly the peritonitis is due to spontaneous bacterial peritonitis. MEDICATIONS: Currently, the patient is on vancomycin as a single agent. PHYSICAL EXAMINATION: Vital Signs: Temperature is 97.9 degrees, pulse 63, respirations 16, blood pressure 122/52. General: This is a fairly healthy-appearing today middle-aged female. She is in no acute distress. She has been able to ambulate and eat. Head/eyes/ears/nose/throat: She can hear my spoken words and see near objects. She does not have any white coating on her tongue. Neck: She does not have any pain in her neck when she moves her head or her neck. Lungs: Clear to auscultation. Cardiovascular: Heart rate is regular. Abdomen: Soft and only minimally tender on the right side. She had the she was more tender in the past few days, but today she is hardly tender at all. Also there is no more drainage coming from the right side of the abdomen. The patient's incisions are intact. Neurologic: Patient is alert. She has is walking around. She does not have any tremor. LAB AND X-RAY: CBC shows a white count of 8850, hemoglobin 13.2, and platelet count 87,000. I have ordered a creatinine to be done right away now. ASSESSMENT AND PLAN: The patient has peritonitis. She is being discharged today on a combination of amoxicillin 500 mg p.o. every 8 hours and Levaquin 500 mg p.o. daily both for 12 more days. This will complete a 14 day treatment course for the patient's peritonitis. As regarding the patient's low platelet count she has a history of that and she is followed by web designer developer for that. I have requested that the patient have a return appointment in 2 weeks but I told her if she is feeling fine she can cancel it. Some of the side effects of amoxicillin and Levaquin including rash, diarrhea, seizures, tendon rupture and neurologic problems have been explained to the patient. She agrees with treatment. COMORBIDITIES: She is a diabetic and she also has cirrhosis of the liver. She also has hematologic problems as mentioned above. cc: Froy Gaming MD
[2018-08-10 11:07] VITALS: BP 132/54
--- NOTE | 2018-08-10 15:40 | DISCHARGE SUMMARY ---
ADMISSION DATE: 08/05/2018 DISCHARGE DATE: 08/10/2018 DISCHARGE DIAGNOSES: 1. Staphylococcus haemolyticus and enterococcal faecalis group B peritonitis. 2. Decompensated non alcoholic steatohepatitis cirrhosis. 3. Ascites. 4. Hepatic encephalopathy, resolved. 5. History of recent laparoscopic cholecystectomy. 6. Type 2 diabetes. 7. History of colon polyps. PROCEDURES PERFORMED: Abdomen ultrasound dated 08/06/2018: Impression minimal fluid about the liver. HOSPITAL COURSE: 63-year-old female with a past medical history of hypertension, hyperlipidemia, GERD, diabetes, anxiety, and ALLRED cirrhosis, who underwent laparoscopic cholecystectomy on 07/26/2018, presented with persistent drainage of clear fluid from her MAGUE drain site since her surgery. Intraoperatively she was found to have a nodular appearing liver coma. It looks like there is some resection of a segment 4 of the liver and a MAGUE drain was placed and the patient was discharged the same day. She was seen again in the emergency department on 07/28/2018, complaining of generalized abdominal pain and she was diagnosed with constipation. Actually, her CT showed constipation as well, liver cirrhosis and bibasilar atelectasis without significant evidence of ascites. She was noted to have drainage from her MAGUE drain at that time. Since then, she said that she has been emptying her MAGUE drain every 30 minutes. She was seen by her PCP because of her symptoms, as well as right lower quadrant pain. A few days ago, her MAGUE was removed, but even though he was removed, she was still draining a good amount of fluid from the wound drain spontaneously and that was worse upon standing. She was admitted on 08/05/2018 and she was also complaining of some nausea, no vomiting, fever, chills, sludge, bright red per rectum, melena, no NSAIDs or blood thinners. She was also evaluated by Surgery Department. Cultures were sent to microbiology that showed Staphylococcus haemolyticus and Enterococcus faecalis. Infectious Disease Department was consulted and we placed this patient on antibiotics. The patient was improving on a daily basis. Today, she is basically not having too much symptoms. She will be discharged today and she will need to follow up with her sand bobber as an outpatient. Also, follow up with Dr. Gaming in 2 weeks to see if we need to continue or stop the antibiotics, also follow with her primary care doctor. We noticed that her blood pressure has been good for the past few days. She used to be on amlodipine and also clonidine, which I have stopped momentarily, I will continue with lisinopril and also she will continue with Lasix and spironolactone. I have also stopped some of her medications that how that can be hepatotoxic and/or can make some problems with liver dysfunction. This has been discussed with the patient as well and she will discuss this with her primary care doctor and the sand bobber. DISCHARGE MEDICATIONS: 1. Amoxicillin 500 mg p.o. q. 8 hours. 2. Exenatide ER 2 mg p.o. subcutaneous. 3. Furosemide 40 mg p.o. daily. 4. Novolin 70/30, 15 units subcutaneous b.i.d., 5. Levofloxacin 500 mg p.o. daily. 6. Lisinopril 40 mg p.o. daily. 7. Zoloft 100 mg p.o. daily. 8. Spironolactone 100 mg p.o. daily. FOLLOWUP: Again, followup by her primary care doctor and sand bobber, also follow up with Dr. Gaming in 2 weeks. PHYSICAL EXAMINATION: Vital signs temperature 97 degrees, 98.3 pulse 67, respiratory rate 16, blood pressure 132/54, oxygen saturation 98 on room air. HEENT: Normocephalic. No trauma. PERRLA. Neck: Supple. No JVD. No masses. Central trachea. Chest: Clear to auscultation. No wheezing. No rales. Abdomen: Soft. she is not using an ostomy bag right now, is slightly tender to palpation on the right side. Positive bowel sounds Extremities: No edema no clubbing, no cyanosis. Neurological: The patient is alert and oriented x3. No focal deficits. LABORATORY: WBC 8.8, hemoglobin 13.2, hematocrit 38.7, platelets 87,000. Sodium 138, potassium 3.6, chloride 104, bicarbonate 26, BUN 9, creatinine 0.5 glucose 160, and calcium 8.5. TIME SPENT: Discharging patient 35 minutes. cc: Jefe Grayson MD
--- NOTE | 2018-09-14 16:46 | HISTORY AND PHYSICAL ---
HISTORY OF PRESENT ILLNESS: A 63-year-old female patient of Dr. Washington. She recently underwent laparoscopic cholecystectomy with a wedge resection of her liver, chronic cholecystitis with presumed cirrhosis on 07/26/2018. She had a drain that was left in with serous ascites and was removed. She developed some abdominal discomfort, saw Dr. Osborne who did a CAT scan that really did not show anything acute. Went to [place] where another CAT scan was obtained. She had some questionable history of pyelonephritis noted on her CT scan and possible right-sided colitis, but overall her normal bowel function. No fevers. No jaundice. There was some pain across her lower abdomen and felt constipated, so was sent here to the hospital and we admitted her. PAST MEDICAL HISTORY: 1. Nonalcoholic steatohepatitis with cirrhosis. 2. Hypertension. 3. Diabetes mellitus type 2. 4. Hyperlipidemia. 5. Osteoarthritis. 6. Depression. 7. Anxiety. SURGICAL HISTORY: 1. Cholecystectomy. 2. Liver biopsy. 3. Left oophorectomy. SOCIAL HISTORY: No alcohol, smokes half a pack a day. I believe she is still living with her family. REVIEW OF SYSTEMS: General: No weight gain or loss. She has not noted fever or chills. HEENT: No change in hearing or visual acuity. Respiratory: No increased work of breathing or dyspnea. Cardiovascular: No chest pain or tachy palpitation. GI and : As noted above. Lower abdominal discomfort. No real change in her bowels. No blood in her stools. Endocrinologic/hematologic: No significant history. PHYSICAL EXAMINATION: GENERAL: Well-developed, well-nourished white female, awake, alert and oriented x3. EYES: Pupils are equal and round. LUNGS: Clear in all lung mae. CARDIOVASCULAR EXAM: Regular rhythm and rate without murmur or S3. ABDOMEN: Soft. Mild discomfort in the lower abdomen, but no real acute tenderness. No epigastric tenderness. No organomegaly appreciated. EXTREMITIES: Without edema. SKIN: Was warm and dry. VITAL SIGNS: Temperature 97.9 degrees, pulse 70, respirations 12, blood pressure 150/70. ASSESSMENT AND PLAN: 1. Apparent ascites leak, most likely decompensated cirrhosis from a cholecystectomy. So, plan to admit her to the hospital and make sure there is no sign of peritonitis, and surgery will be notified as well as Dr. Coolin for Gastroenterology. 2. Her labs from outside hospital notable for leukocytosis, urinary tract sediment, Klebsiella pneumonia, and so plan to treat her for possible pyelonephritis. 3. Diabetes mellitus type 2. Will follow sugars. 4. Hypertension. Watch blood sugars. cc: Jeremy Horn MD
== END 2018-08-10 12:26 | disposition home or self-care (01) | DRG 432 ==
LOC: DIRADM 09:39 → SUATTDRO 09:39 → 4N 14:14
PROVIDERS: ATTEND Internal Medicine
CPT/HCPCS: 76700; 80048; 80053; 81001; 82042; 82247; 82948; 85025; 85610; 86706; 86708; 86709; 87070; 87077; 87186; 87205; 89051; A9270; J0696; J0744; J2405; J2543; J3370; J7030; J7040; P9047; S0030; XXXXX